=== PATIENT | female | born 1990 | race Caucasian/White ===

== ENCOUNTER 2020-09-19 19:55 | Inpatient (IN) ==
[2020-09-19 20:54] LABS: Basophils % 0.3 %; Eosinophils # 0.1 K/mcL (0.0-0.6); Eosinophils % 0.5 %; Hematocrit 44.1 % (35.3-44.9); Hemoglobin 14.2 g/dL (11.5-15.4); Immature Granulocytes % 0.5 % (0-4); Lymphocytes # 2.4 K/mcL (0.6-4.6); Lymphocytes % 15.8 %; Mean Corpuscular HGB Conc 32.2 g/dL (31.6-35.5); Mean Corpuscular Hemoglobin 26.9 pg (28.0-33.3); Mean Corpuscular Volume 83.7 fL (83.0-100.0); Mean Platelet Volume 8.8 fL (9.4-12.4); Monocytes # 0.9 K/mcL (0.0-1.3); Monocytes % 6.1 %; Neutrophils # 11.5 K/mcL (1.6-8.9); Platelet Count 359 K/mcL (140-400); Red Blood Count 5.27 M/mcL (3.82-4.97); Red Cell Distribution Width 13.7 % (11.5-14.5); Segmented Neutrophils % 76.8 %; White Blood Count 14.9 K/mcL (4.3-11.1)
[2020-09-19] MEDS ORDERED: Metoclopramide 10 MG/2 ML VIAL IVP ONE (21:03)
[2020-09-19 21:06] LABS: Amphetamine Screen,Urine Positive ng/mL (Cutoff=1000); Barbiturate Screen,Urine Negative ng/mL (Cutoff=200); Benzodiazepines Screen,Urine Negative ng/mL (Cutoff=200); Cannabinoid Screen,Urine Positive ng/mL (Cutoff = 50); Cocaine Screen,Urine Negative ng/mL (Cutoff= 300); Opiate Screen,Urine Negative ng/mL (Cutoff=300); Phencyclidine Screen,Urine Negative ng/mL (Cutoff=25)
[2020-09-19 21:08] LABS: Bilirubin,Urine Negative (Negative); Blood,Urine Negative (Negative); Clarity,Urine Clear (Clear); Color,Urine Light-Yellow (Yellow); Glucose,Urine (UA) Normal (Normal); Hyaline Casts,Urine Few per lpf (None Seen); Ketones,Urine Negative (Negative); Leukocyte Esterase,Urine Negative (Negative); Mucus,Urine Few per lpf (None-Few); Nitrite,Urine Negative (Negative); PH,Urine 6.5 pH Units (5.0-8.0); Protein,Urine 30 mg/dL (Neg-Trace); RBC,Urine 0-3 per hpf (0-3); Specific Gravity,Urine 1.015 (1.010-1.025); Squamous Epithelial Cell,Urine Few per hpf (None-Few); Urobilinogen,Urine Normal (Normal); WBC,Urine 0-3 per hpf (0-3)
[2020-09-19 21:13] LABS: Acetaminophen < 10 mcg/mL (10-20); BUN/Creatinine Ratio 9 (6-26); Blood Urea Nitrogen 9 mg/dL (6-20); Calcium 9.7 mg/dL (8.6-10.3); Carbon Dioxide 27 mEq/L (23-29); Chloride 105 mEq/L (98-107); Chol/HDL Ratio 4.9 (0-4.9); Cholesterol 230 mg/dL (< 200); Ethanol < 10 mg/dL (Less than 10); Glucose 100 mg/dL (70-105); HDL Cholesterol 47 mg/dL (40-59); LDL Cholesterol,Calculated 160 mg/dL (< 100); Osmolality,Calculated 289 (280-300); Potassium 3.8 mEq/L (3.5-5.1); Salicylate < 2.5 mg/dL (15.0-30.0); Sodium 140 mEq/L (136-145); Triglycerides 114 mg/dL (< 150); eGFR For African Americans > 60 (> 60); eGFR For Non-African Americans > 60 (> 60)
[2020-09-19] MEDS ORDERED: Isovue-370 500 ML BOTTLE IVP ONE (21:28)
[2020-09-19 21:29] LABS: Estimated Average Glucose 108 mg/dl; Hemoglobin A1C 5.4 %
[2020-09-20] MEDS ORDERED: Acetaminophen 325 MG TABLET PO PRN (01:35)
[2020-09-20] MEDS ORDERED: Rho Immune Globulin 1,500 UNIT SYRINGE IM ONE (01:51)
[2020-09-20] MEDS ORDERED: hydrOXYzine pamoate 25 MG CAPSULE PO PRN (10:01)
[2020-09-20] MEDS ORDERED: haloperidoL 5 MG TABLET PO PRN (10:01)
[2020-09-20] MEDS ORDERED: QUEtiapine Fumarate 25 MG TABLET PO PRN (10:01)
[2020-09-20] MEDS ORDERED: *HR* LORazepam 1 MG TABLET PO PRN (10:01)
[2020-09-20] MEDS ORDERED: *HR* LORazepam 2 MG/ML VIAL IM PRN (10:01)
[2020-09-20] MEDS ORDERED: Haloperidol Lactate 5 MG/ML VIAL IM PRN (10:01)
[2020-09-20] MEDS ORDERED: Cyprohepatdine 4 MG TABLET PO PRN (12:20)
[2020-09-20] MEDS ORDERED: QUEtiapine Fumarate 100 MG TABLET PO SCH (21:00)
[2020-09-21] MEDS ORDERED: QUEtiapine Fumarate 25 MG TABLET PO SCH (09:00)
[2020-09-21 10:17] VITALS: BP 134/87
== END 2020-09-21 14:43 | disposition home or self-care (01) | DRG 753 ==
LOC: EMEROOARM 19:55 → 1ANU 09-20 01:33
PROVIDERS: ADMIT Psychiatry & Neurology Psychiatry; ATTEND Psychiatry & Neurology Psychiatry